=== PATIENT | female | born 1955 ===

== ENCOUNTER 2021-05-10 06:52 | Day surgery (SDC) | payer OTHER ==
[~2021-05-10 06:52] MED LIST: CLONAZEPAM1 M1 PO; COZAAR100 MG PO; JENTADUETO 2.51 EAC2 PO; PARAFON FORTE PO; SIMVASTATIN20 MG PO; TOUJEO SOL300 UNIT/1; VOLTAREN100 GM TOP
== END 2021-05-10 14:55 | disposition home or self-care (01) ==
LOC: CIR.AMB 06:52
PROVIDERS: ATTEND Orthopaedic Surgery
DX: M75.02 Adhesive capsulitis of left shoulder (principal); Z20.822 Contact with and (suspected) exposure to COVID-19

== ENCOUNTER 2023-01-01 05:35 | Day surgery (SDC) | payer OTHER ==
[~2023-01-01] VITALS: Ht 152.4 cm; Wt 67.1 kg
[~2023-01-01 05:35] MED LIST changes: +PEPCID20 MG PO
[2023-01-01] MEDS ORDERED: TRAM1TAB98 PO (09:29)
[2023-01-01] MEDS ORDERED: SURFAK240 M1 PO (09:30)
[2023-01-01] MEDS ORDERED: MIRALAX17 GM PO (09:30)
[2023-01-01] MEDS ORDERED: CIPRO500 MG PO (09:30)
[2023-01-01] MEDS ORDERED: PROTONIX40 MG PO (09:31)
== END 2023-01-01 12:10 | disposition home or self-care (01) ==
LOC: CIR.AMB 05:35
PROVIDERS: ATTEND Surgery
DX: K80.10 Calculus of gallbladder with chronic cholecystitis without obstruction (principal); K42.9 Umbilical hernia without obstruction or gangrene; R59.0 Localized enlarged lymph nodes; I10 Essential (primary) hypertension; E11.9 Type 2 diabetes mellitus without complications; Z79.84 Long term (current) use of oral hypoglycemic drugs; Z79.4 Long term (current) use of insulin; Z20.822 Contact with and (suspected) exposure to COVID-19